=== PATIENT | female | born 1975 | race Caucasian/White ===

== ENCOUNTER 2023-11-14 15:54 | Emergency (ER) | payer OTHER, SELFPAY ==
--- NOTE | 2023-11-14 15:54 | ECG_ITS ---
APPROVED REPORT Exam: Resting ECG HR:85 bpm ECG Measurements Heart Rate [address] 142 P 63 QRSd 79 QRS 27 QT 378 T 41 QTc 420 Conclusion SINUS RHYTHM POSSIBLE LEFT ATRIAL ENLARGEMENT [-0.1mV P-WAVE IN V1/V2] Electronically signed by : SETH ADAMES, 11/15/2023 03:25:51
[2023-11-14 15:58] VITALS: BP 135/78; PULSE 92; RESP 20; TEMP 37; O2SAT 95; BMI 35.7
[2023-11-14 16:00] VITALS: BP 181/112; PULSE 84; RESP 20; O2SAT 94
[2023-11-14 16:04] VITALS: BMI 35.7
--- NOTE | 2023-11-14 16:05 | ED_ITS ---
<Statement entered by Mayda Madison MD - 11/14/23 23:02> I was consulted by the BALWINDER, and we discussed the complexity of the problems being addressed. I approved the treatment and management plan for this patient's care in the emergency department, thus performing a substantive portion of the medical decision making. Mayda Madison MD, MARYLU, FACEP Discharge Plan Disposition Patient Disposition: Home, Self-Care Condition: Good Referrals Follow up/Referrals: Marciano Sousa MD [Staff Physician] - See instructions Provider,MD Rosemary [Primary Care Provider] - See instructions Activity Restrictions/Add. Instructions Additional Instructions/Restrictions: Follow-up with PCP or return to ED for any worsening signs symptoms or condition. Clinical Impressions Clinical Impression: Chest pain Qualifiers: Chest pain type: unspecified Qualified Code(s): R07.9 - Chest pain, unspecified Discharge ED Provider: Mayda Madison [facility] General Chief Complaint: Chest Pain Stated Complaint: chest pain Time Seen by Provider: 11/14/23 16:05 History of Present Illness HPI narrative: Patient presents for evaluation of substernal chest pain that began yesterday. Patient states that the pain is located in the center of her chest below her sternum that does not radiate. Patient reports that it has never completely gone away but has waxed and waned in intensity. Patient reports that it began suddenly as pressure while at work yesterday. Patient went to a hospital in [facility] where she was evaluated but ultimately discharged with no specific findings or diagnosis. Patient denies diaphoresis fever chills hemoptysis hematochezia melena nausea vomiting diarrhea. ` Related Data Allergies Allergy/AdvReac Type Severity Reaction Status Date / Time etodolac Allergy Verified 11/14/23 16:06 Sulfa (Sulfonamide Allergy Verified 11/14/23 16:06 Antibiotics) [facility] Disclaimer: The information contained in this section may have been updated after the patient was seen, as this information can be updated by other users. Social History Smoking Status: Unknown if ever smoked alcohol intake: never current occupational status: employed Travel in the last 8 weeks: None ROS Obtained: Yes Systems reviewed as appropriate & no additional complaints except as documented Physical Exam General General appearance: alert and in no apparent distress Head Head exam: atraumatic and normal inspection Eye Eye exam: Present normal appearance and PERRL ENT ENT exam: Present normal exam, normal oropharynx and mucous membranes moist Neck Neck exam: Present normal inspection and full ROM Chest Chest inspection: Present normal inspection and symmetric chest wall rise; Absent tenderness (No deformity) Respiratory Respiratory exam: Present normal lung sounds bilaterally; Absent respiratory distress, wheezes or accessory muscle use Cardiovascular Cardiovascular exam: Present regular rate, normal rhythm, normal heart sounds, +S1 and +S2 Abdominal Exam Abdominal exam: Present soft (Obese), tenderness (Patient was exquisitely tender to palpation in the epigastrium) and normal bowel sounds; Absent guarding or rebound Extremities Exam Extremities exam: Present normal inspection and full ROM Back Exam Back exam: Present normal inspection and full ROM Neurological Exam Neurological exam: Present alert and oriented X3 Psychiatric Psychiatric exam: Present normal affect and normal mood Skin Skin exam: Present warm, dry and normal color HEART Score HEART Score HEART Score assessment performed?: Yes History (anamnesis): Slightly suspicious ECG: Normal Age: 45-65 years Risk factors: 1-2 risk factors Troponin: </= normal limit HEART Score: 2 Critical Care Critical Care Time Critical Care Time: No Medical Decision Making Medical Records Medical records reviewed: Yes I reviewed the patient's medical records. Christopher Inquiry Pt receiving controlled substance: No Vital Signs Vital Signs: 11/14/23 15:58 11/14/23 16:00 11/14/23 16:30 Temperature 98.6 F Temperature Source Oral Pulse Rate 84 78 Pulse Rate [Right] 92 H Respiratory Rate 20 20 20 Blood Pressure 181/112 H 186/116 H Blood Pressure [Right Arm] 135/78 Blood Pressure Mean 138 139 Blood Pressure Mean [Right Arm] 97 Blood Pressure Source Blood Pressure Source [Right Arm] Automatic Cuff Blood Pressure Position 02 Sat by Pulse Oximetry 95 94 L 96 Oxygen Delivery Method Room Air 11/14/23 18:00 Temperature 98.0 F Temperature Source Oral Pulse Rate 82 Pulse Rate [Right] Respiratory Rate 18 Blood Pressure 174/100 H Blood Pressure [Right Arm] Blood Pressure Mean Blood Pressure Mean [Right Arm] Blood Pressure Source Automatic Cuff Blood Pressure Source [Right Arm] Blood Pressure Position Sitting 02 Sat by Pulse Oximetry Oxygen Delivery Method Room Air Lab Data Lab results reviewed: Yes I reviewed the patient's lab results. Labs: Lab Results 11/14/23 16:01: WBC 9.2, RBC 4.47, Hgb 12.2, Hct 39.1, MCV 87.5, MCH 27.3, MCHC 31.3 L, RDW 14.5, Plt Count 519 H, MPV 7.2 L, Neut % (Auto) 66.5, Lymph % (Auto) 24.0, Starke % (Auto) 5.1, Eos % (Auto) 3.4, Baso % (Auto) 1.1, Neut # (Auto) 6.1, Lymph # (Auto) 2.2, Starke # (Auto) 0.5, Eos # (Auto) 0.3, Baso # (Auto) 0.1, Lipase 43 11/14/23 : Sodium 141, Potassium 3.6, Chloride 105, Carbon Dioxide 27, Anion Gap 12.6, BUN 17, Creatinine 1.30 H, Estimated Creat Clear 69, Estimated GFR 44 L, E st GFR ( Amer) 53 L, Glucose 98, Calcium 9.6, Total Bilirubin 0.7, AST 27, ALT 26, Alkaline Phosphatase 116, Troponin I < 0.01, Total Protein 7.1, Albumin 4.6, Globulin 2.5, Albumin/Globulin Ratio 1.8 11/14/23 16:01 11/14/23 Unknown Response Orders (Tests/Meds): ED MEDICATIONS Discontinued Medications Generic Name Dose Route Start Last Admin Trade Name Freq PRN Reason Stop Dose Admin Acetaminophen 1,000 mg 11/14/23 16:21 11/14/23 16:32 Acetaminophen 1,000mg/100ml Vial IV 11/14/23 16:22 1,000 mg ONCE ONE Administration Belladonna Alkaloids 60 ml 11/14/23 16:21 11/14/23 16:32 Belladonna Alkaloids 60 Ml Ml PO 11/14/23 16:22 60 ml ONCE ONE Administration Iopamidol 70 ml 11/14/23 18:06 11/14/23 18:07 Iopamidol-370 (76%);100ml Bottle IV 11/14/23 18:07 70 ml ONCE ONE Administration Metoprolol Tartrate 25 mg 11/14/23 17:46 11/14/23 17:50 Metoprolol Tartrate 50mg Tablet PO 11/14/23 17:47 25 mg ONCE ONE Administration Sodium Chloride 10 ml 11/14/23 16:11 Sodium Chloride 0.9% 10ml Flush Syringe IV 12/14/23 16:10 NEEDED PRN Maintain IV Site Sodium Chloride 10 ml 11/14/23 18:06 11/14/23 18:07 Sodium Chloride 0.9% 10ml Syr (Rad Only) IV 11/14/23 18:07 10 ml ONCE ONE Administration Sodium Chloride 50 ml 11/14/23 18:06 11/14/23 18:07 0.9 % Sodium Chloride 50 Ml Vial IV 11/14/23 18:07 50 ml ONCE ONE Administration ORDERS Category Date Time Status CT angio chest PE protocol Stat Cat Scan 11/14/23 16:56 Completed CXR 2 view (NOT portable) [XR chest 2V] Stat Exams 11/14/23 16:07 Completed Complete Blood Count Auto Diff Stat Lab 11/14/23 16:01 Completed Comprehensive Metabolic Panel Stat Lab 11/14/23 Completed Lipase Stat Lab 11/14/23 16:01 Completed Troponin I Stat Lab 11/14/23 Completed MDM Narrative Medical Decision Narrative: In summary patient is a 48-year-old female who presents to the emergency department for evaluation of greater than 24-hour chest pain. Patient is hemodynamically stable upon arrival, afebrile. Physical exam is remarkable for tenderness to palpation epigastrium however the remainder of her physical exam was nonfocal and unremarkable other than obesity. Differential diagnosis includes ACS versus esophagitis versus ulcer versus pancreatitis etc. Initial workup will be conducted with hematologic labs twelve-lead EKG. Initial interventions include Toradol Tylenol GI cocktail. Initial workup reviewed by me shows that her hematologic labs are unremarkable including negative troponin negative D-dimer however her plain film chest x-ray informally interpreted by me shows possibly a rim of air representing a possible pneumothorax on the right. My informal interpretation of her CTA PE protocol shows no evidence of PE and does not show a pneumothorax although the radiologist read is pending. Upon repeat evaluation has had no interval change positive or negative and her subjective symptoms that are still present, present on arrival including central chest pressure with no radiation. Patient did have elevation of her blood pressure greater than 200 systolic at the time of my reexamination. Given this we have investigated life-threatening or critical causes of her discomfort and had found none thus far, patient will be given a dose of her home metoprolol prior to discharge with instructions to follow-up with cardiology in the a.m. Patient verbalized understanding and agreement.
--- NOTE | 2023-11-14 16:07 | XR_ITS ---
PROCEDURE INFORMATION: Exam: XR Chest Exam date and time: 11/14/2023 4:07 PM Age: 48 years old Clinical indication: Sternal or substernal pain; Additional info: Chest pain TECHNIQUE: Imaging protocol: Radiologic exam of the chest. Views: 2 views. COMPARISON: No relevant prior studies available. FINDINGS: Lungs: Unremarkable. No consolidation. Pleural spaces: Very thin pleural air collection seen laterally at the right lung base. No pleural fluid. Heart/Mediastinum: Unremarkable. No cardiomegaly. Bones/joints: Unremarkable. IMPRESSION: Possible thin pneumothorax at the lateral right lung base. This does not have the typical appearance of a prominent skin fold. Consider further evaluation with chest CT.
--- NOTE | 2023-11-14 16:17 | PC.NURSE ---
Pt gone to RAD
--- NOTE | 2023-11-14 16:20 | PC.NURSE ---
Pt back from LAB
[2023-11-14 16:22] LABS: Alanine Aminotransferase 26 U/L (12-78); Albumin Level 4.6 g/dl (3.5-5.0); Albumin/Globulin Ratio 1.8 (1.1-1.8); Alkaline Phosphatase 116 U/L (38-126); Anion Gap 12.6 mEq/L (5-15); Aspartate Amino Transferase 27 U/L (14-36); Bilirubin,Total 0.7 mg/dl (0.2-1.3); Blood Urea Nitrogen 17 mg/dl (7-17); Calcium 9.6 mg/dl (8.4-10.2); Carbon Dioxide 27 mmol/L (22.0-30.0); Chloride 105 mmol/L (98-107); Creatinine Clearance Estimated 69 mL/min (50-200); Estimated Glomerular Filt Rate 44 ml/min (>60); GFR (African American) 53 ML/MIN (>60); Globulin 2.5 g/dL (1.3-3.2); Glucose 98 mg/dl (74-100); Potassium 3.6 mmoL/L (3.5-5.1); Sodium 141 mmol/L (136-145); Total Protein,Serum 7.1 g/dl (6.3-8.2)
[2023-11-14 16:30] VITALS: BP 186/116; PULSE 78; RESP 20; O2SAT 96
[2023-11-14] MEDS: ACETAMINOPHEN 1,000MG/100ML VIAL 1000 MG IV (16:32)
[2023-11-14] MEDS: BELLADONNA ALKALOIDS 60 ML ML PO (16:32)
[2023-11-14 16:34] LABS: Troponin I < 0.01 ng/ml (0.00-0.034)
[2023-11-14 16:43] LABS: Basophils # 0.1 K/mm3 (0-0.2); Basophils % 1.1 % (0.1-2.0); Eosinophils # 0.3 K/mm3 (0.0-0.4); Eosinophils % 3.4 % (0.1-12.0); Hematocrit 39.1 % (37.0-47.0); Hemoglobin 12.2 g/dL (12.2-16.2); Lymphocytes # 2.2 K/mm3 (0.7-4.5); Mean Corpuscular HGB Conc 31.3 g/dL (31.8-35.4); Mean Corpuscular Hemoglobin 27.3 pg (27.0-31.2); Mean Corpuscular Volume 87.5 fl (81-99); Mean Platelet Volume 7.2 fl (7.4-10.4); Monocytes # 0.5 K/mm3 (0.1-1.0); Monocytes % 5.1 % (1.7-9.3); Neutrophils # 6.1 K/mm3 (1.8-7.8); Neutrophils % 66.5 % (37.0-80.0); Platelet Count 519 K/mm3 (142-424); Red Blood Count 4.47 M/mm3 (4.20-5.40); Red Cell Distribution Width 14.5 % (11.5-17.5); White Blood Count 9.2 K/mm3 (4.8-10.8)
--- NOTE | 2023-11-14 16:55 | PC.NURSE ---
DR JAIN SPEAKING WITH BETHANEI
--- NOTE | 2023-11-14 16:56 | CT_ITS ---
PROCEDURE INFORMATION: Exam: CTA Chest With Contrast Exam date and time: 11/14/2023 5:20 PM Age: 48 years old Clinical indication: Sternal or substernal pain; Additional info: Cp, f/u abnormal cxr possible ptx TECHNIQUE: Imaging protocol: Computed tomographic angiography of the chest with contrast. Exam focused on the arteries. 3D rendering (Not supervised by radiologist): MIP and/or 3D reconstructed images were created by the technologist. Radiation optimization: All CT scans at this facility use at least one of these dose optimization techniques: automated exposure control; mA and/or kV adjustment per patient size (includes targeted exams where dose is matched to clinical indication); or iterative reconstruction. Contrast material: ISO 370; Contrast volume: 70 ml; Contrast route: INTRAVENOUS (IV); COMPARISON: CR XR CHEST 2V 11/14/2023 4:07 PM FINDINGS: Pulmonary arteries: Normal. No pulmonary emboli. Aorta: Unremarkable. No aortic aneurysm. No aortic dissection. Lungs: 5 mm right lower lobe calcified granuloma. Minor bibasilar atelectasis. No consolidation. No masses. Pleural spaces: Unremarkable. No pneumothorax. No pleural effusion. Heart: Unremarkable. No cardiomegaly. No pericardial effusion. Lymph nodes: Unremarkable. No enlarged lymph nodes. Gallbladder and bile ducts: Cholecystectomy. Bones/joints: Unremarkable. No acute fracture. Soft tissues: Unremarkable. IMPRESSION: 1. Minor bibasilar atelectasis. 2. No pneumothorax is visualized.
[2023-11-14 17:02] LABS: Lipase 43 U/L (23-300)
[2023-11-14] MEDS: METOPROLOL TARTRATE 50MG TABLET 25 MG PO (17:50)
[2023-11-14 18:00] VITALS: BP 174/100; PULSE 82; RESP 18; TEMP 36.7; O2SAT 98
[2023-11-14] MEDS: IOPAMIDOL-370 (76%);100ML BOTTLE 70 ML IV (18:07)
[2023-11-14] MEDS: 0.9 % SODIUM CHLORIDE 50 ML VIAL IV (18:07)
[2023-11-14] MEDS: SODIUM CHLORIDE 0.9% 10ML SYR (RAD ONLY) 10 ML IV (18:07)
== END 2023-11-14 18:00 | disposition home or self-care (01) ==
PROVIDERS: Physician Assistant; Emergency Provider Student in an Organized Health Care Education/Training Program
DX: R07.9 Chest pain, unspecified (principal)
CPT/HCPCS: 71046; 71275; 80053; 83690; 84484; 85025; 93005; 96374; 99285; J0131; Q9967

== ENCOUNTER 2023-11-15 11:57 | Outpatient (CLI) | payer OTHER, SELFPAY | END 2023-11-15 23:59 | PROVIDERS: PCP Nurse Practitioner Family; Visit Provider Nurse Practitioner | DX: R00.2 Palpitations (principal); R07.9 Chest pain, unspecified; I10 Essential (primary) hypertension; E78.5 Hyperlipidemia, unspecified; E11.9 Type 2 diabetes mellitus without complications; Z79.84 Long term (current) use of oral hypoglycemic drugs | CPT/HCPCS: 93270 ==

== ENCOUNTER 2023-12-02 12:27 | Outpatient (CLI) | payer OTHER, SELFPAY ==
--- NOTE | 2023-12-02 | CA_ITS ---
APPROVED REPORT Exam: Exercise Treadmill Technologist: Cheyenne Alan, Ht: 5 ft 0 in Wt: 184 lbs BSA: 1.80 m2 HR: 95 bpm BP: 123/82 mmHg Rhythm: NSR Medical History Medical History: HTN, Hyperlipidemia, Diabetes Medications: Aspirin,,,,, Pravastatin,,,,, Metformin,,,,, Gabapentin,,,,, Buspirone,,,,, SyMBICORT,,,,, Estradiol,,,,, Lansoprazole,,,,, Montelukast,,,,, Vit D3,,,,, LoraTADINE,,,,, Tizanidine,,,,, Allergies: etodolac, sulfa Cardiac Risk Factors: HTN, Hyperlipidemia, Diabetes Stress Test Details Test: Manual Treadmill HR Resting HR: 99 bpm Max Heart Rate (APMHR): 172 bpm Max HR Achieved: 152 bpm Target HR (85% APMHR): 146 bpm % of APMHR: 88 Recovery HR: 115 bpm HR response to stress: Normal HR response to stress BP Resting BP: 123.0/82 mmHg Max BP: 176/78 mmHg Recovery BP: 139.0/66.0 mmHg BP response to stress: Normal blood pressure response to stress. ECG Resting ECG: Normal sinus rhythm Stress EC.[address] depression Arrhythmia: None Recovery ECG: Return to baseline within 3 minutes of recovery Clinical Exercise duration: 08:27 min Highest Stage Achieved: Exercise capacity: 10.1 METs Overall Exercise Capacity for Age: Average Stress ECG Conclusion The patient was able to exercise for a total of 8 minutes, 27 seconds. She achieved a total of 10.1 METS. She has average exercise capacity compared to age and sex matched peers. She has normal HR and BP response to exercise. At peak stress, the patient developed dyspnea and mild chest pain. Ectopy: None ST changes: 0.[address] depression Conclusion: Average exercise capacity. No ischemic ECG changes at peak stress. Myoview images are reported separately. Test Summary REST . . . . . . . Standing REST . . . . . . . Sitting REST 13:30 0.0 0.0 99 . 123/ 82 . . Stage 1 01:00 10.0 1.7 109 . . . . Stage 1 02:00 10.0 1.7 117 . . . . Stage 1 03:00 10.0 1.7 121 . 130/ 78 . . Stage 2 01:00 12.0 2.5 125 . . . . Stage 2 02:00 12.0 2.5 130 . . . . Stage 2 03:00 12.0 2.5 134 . 145/ 82 . . Stage 3 01:00 14.0 3.4 139 . . . . Stage 3 02:00 14.0 3.4 146 . . . . Stage 3 . . . . . . . Protocol changed to Manual Treadmill Stage 3 02:27 14.0 3.2 80 . . . Stop exercise at 08:27 RECOVERY 01:00 0.0 0.0 145 . . . . RECOVERY 02:00 0.0 0.0 132 . 127/ 73 . . RECOVERY 03:00 0.0 0.0 126 . 127/ 73 . . RECOVERY 04:00 0.0 0.0 118 . 176/ 78 . . RECOVERY 05:00 0.0 0.0 115 . 158/ 65 . . RECOVERY 05:59 0.0 0.0 115 . 139/ 66 . . Electronically signed by : Anu Ritchie MD 12/03/2023 11:38:15
--- NOTE | 2023-12-02 12:28 | NM_ITS ---
APPROVED REPORT Exam: Nuclear Stress Test Indication: HTN, HYPERLIPIDEMIA, FM HX, C.P., SOB, PALPITATIONS, FATIGUE Patient Location: Outpatient Stress Tech: Cheyenne Alan [place] Tech:Yolanda HowellBIANCA RT(R)(N) Ht: 5 ft 1 in Wt: 183 lbs Bra Size: 38C HR: 99 bpm BP: 123/82 mmHg BSA: 1.82 m2 BMI: 34.5 History: HTN, HYPERLIPIDEMIA, FM HX, C.P., SOB, PALPITATIONS, FATIGUE Procedure: Patient exercised on Evan protocol 8:27 minutes and sec, resting heart rate 99 bpm, resting blood pressure 123/82 mmHg, with exercise maximum heart rate achived was 152 bpm which is 88 % of the maximum predicted heart rate and blood pressure was 176/78 mmHg. Test was stopped due to FATIGUE. Patient has exercise capacity, achieved 10.1 METs of workload on treadmill, the blood pressure response to exercise was . Cardiac Stress and Resting SPECT Images: Cardiac Stress and Resting SPECT images were obtained using technetium 99m Myoview 32.0 mCi stress and 10.51 mCi at rest. Resting and stress imaging in supine and prone positions demonstrate no evidence of fixed or reversible perfusion defects. There is low normal global LV systolic function. LVEF is calculated at 50%. Conclusion: No evidence of fixed or reversible perfusion defects. There is low normal global LV systolic function. LVEF is calculated at 50%. Electronically signed by : Anu Ritchie MD 12/04/2023 13:09:20
[2023-12-02] MEDS: ISOTOPE MYOVIEW (PER STUDY) 1 DOSE IV (14:43)
[2023-12-02] MEDS: SODIUM CHLORIDE 0.9% 10ML SYR (RAD ONLY) 10 ML IV ×2 (14:43)
== END 2023-12-02 23:59 ==
LOC: RAD 12:28
PROVIDERS: PCP Nurse Practitioner Family; Visit Provider Nurse Practitioner
DX: R07.9 Chest pain, unspecified (principal); R00.2 Palpitations; I10 Essential (primary) hypertension; E78.5 Hyperlipidemia, unspecified; E11.9 Type 2 diabetes mellitus without complications; Z79.84 Long term (current) use of oral hypoglycemic drugs
CPT/HCPCS: 78452; 93017; 93018; A9502

== ENCOUNTER 2023-12-10 07:55 | Outpatient (CLI) | payer OTHER, SELFPAY ==
--- NOTE | 2023-12-10 07:58 | CA_ITS ---
FINAL REPORT TECHNIQUE: Color Doppler, duplex Doppler and olivia scale sonography of the bilateral neck arterial vasculature was performed. Velocities were measured in the carotid arteries. Stenosis evaluation based on the validated velocity criteria. CLINICAL HISTORY: DIZZINESS,HTN,HLD COMPARISON: None FINDINGS: The peak systolic velocity of the right common carotid artery is 111 cm/s. The peak systolic velocity of the right internal carotid artery is 111 cm/s and end diastolic velocity 48 cm/s. The ICA/CCA ratio is 1.08. A minimal amount of plaque is present. The right external carotid artery is patent. The right vertebral artery is patent with antegrade flow. The peak systolic velocity of the left common carotid artery is 104 cm/s. The peak systolic velocity of the left internal carotid artery is 121 cm/s and end diastolic velocity 49 cm/s. The ICA/CCA ratio is 1.33. A minimal amount of plaque is present. The left external carotid artery is patent.The left vertebral artery is patent with antegrade flow. IMPRESSION: Less than 50% bilateral carotid stenoses. Bilateral patent vertebral arteries with antegrade flow. If indicated, CTA or MRA could further evaluate. Reviewed, Interpreted and Dictated by Glen Ni III, MD Transcribed by Katey Osei Authenticated and [facility]
--- NOTE | 2023-12-10 07:58 | CA_ITS ---
FINAL REPORT TECHNIQUE: Grayscale, color Doppler and duplex Doppler ultrasound of the kidneys, aorta and renal arteries was performed. Multiple velocities were measured. CLINICAL HISTORY: HTN,HLD,HX KIDNEY STONES COMPARISON: None FINDINGS: Aorta velocity: 76 cm/sec Right kidney: 9.9 cm. No evidence of hydronephrosis or mass. Right intrarenal RI: 0.59-0.64 Right renal artery velocity: 148 cm/sec. Right RAR (Renal artery-Aortic Ratio): 1.95 Left Kidney: 9.7 cm. No evidence of hydronephrosis or mass. Left intrarenal RI: 0.66-0.68 Left renal artery velocity: 153 cm/sec. Left RAR (Renal Artery-Aortic Ratio): 2.02 IMPRESSION: No evidence of significant renal artery stenosis. CT angiogram or postcontrast MR angiogram would be more sensitive for evaluation of possible renal artery stenosis. Reviewed, Interpreted and Dictated by Glen Ni III, MD Transcribed by Katey Osei Authenticated and [facility]
--- NOTE | 2023-12-10 07:58 | CA_ITS ---
APPROVED REPORT EXAM: Comprehensive 2D, Doppler, and color-flow Echocardiogram Otorhinolaryngologist: Claudia Reyez CRT Ht: 5 ft 0 in Wt: 184lbs BSA: 1.80 BP: 173/91 mmHg Indications: Chest Pain, Shortness of Breath, Diabetes, Palpitations, Hyperlipidemia, Hypertension/HDD 2D Dimensions LA Volume 20.40 mL LA Volume Index 11.00 mL/m2 (M/F) 16-34 M-Mode Dimensions RVDd 2.07 cm (0.9-2.6) LA Diam 2.59 cm (1.9-4.0) LVDd 3.92 cm (3.5-5.7) LVDs 2.50 cm (3.5-5.7) IVSd 1.07 cm (0.6-1.1) PWd 0.95 cm (0.6-1.1) EF (Teich) 66.60% FS 36.20% EDV (Teich) 66.70 mL TAPSE 1.43 (<1.7) ESV (Teich) 22.30 mL LV Diastology E Decel Time 207 (160-240 msec) E/A Ratio 0.69 MED A' 12.80 cm/s LAT A' 10.00 cm/s Aortic Valve AO Peak GR. 5.70 mmHg Mitral Valve MV E Max Emile. 72.0 (40-130 cm/s) MV A Velocity 105.0 (40-130 cm/s) E/A Ratio 0.69 MV PHT 61.0 ms Pulmonary Valve PV Peak Velocity 159.0 (50-150 cm/s) Tricuspid Valve TR P. Velocity 165.00 cm/s RAP Estimate 10.00 mmHg RVSP 20.80 mmHg Left Ventricle The left ventricle is normal size. The left ventricular systolic function is normal. The left ventricular ejection fraction is within the normal range. There is increased LV wall thickness. There is normal LV segmental wall motion. Transmitral Doppler flow pattern suggests impaired LV relaxation. LVEF is 50-55%. Right Ventricle The right ventricle is normal size. The right ventricular systolic function is normal. Atria The left atrium size is normal. The right atrium size is normal. There is no Doppler evidence of interatrial shunt. Aortic Valve The aortic valve opens well. There is no aortic valvular stenosis. No aortic regurgitation is present. Mitral Valve The mitral valve is normal in structure. No evidence of mitral valve stenosis. Trace mitral valve regurgitation noted. Tricuspid Valve The tricuspid valve leaflets are thin and pliable. Trace tricuspid regurgitation. There is insufficient TR jet to estimate RVSP. Pulmonic Valve The pulmonary valve is normal in structure. Trace pulmonic regurgitation. Great Vessels The aortic root is normal in size. The ascending aorta is normal in size. IVC is normal in size and collapses >50% with inspiration. Pericardium There is no pericardial effusion. Other Information Study Quality: Fair Conclusion Normal biventricular systolic function. No significant valvular stenosis or regurgitation. Electronically signed by : Anu Ritchie MD 12/13/2023 00:24:57
--- NOTE | 2023-12-10 08:52 | US_ITS ---
FINAL REPORT TECHNIQUE: Ultrasound images of the kidneys and bladder were obtained. CLINICAL HISTORY: R07.9 - Chest pain, unspecified FINDINGS: The right kidney measures 8.9 cm in length. It is normal in echogenicity. There is no hydronephrosis. The left kidney measures 10.1 cm in length. It is normal in echogenicity. There is no hydronephrosis. There are questionable small bilateral renal stones. The spleen is unremarkable. IMPRESSION: Questionable bilateral renal stones. If indicated, stone protocol CT could further evaluate. Reviewed, Interpreted and Dictated by Glen Ni III, MD Transcribed by Rica Casas Authenticated and [facility]
== END 2023-12-10 23:59 ==
LOC: RT 07:56
PROVIDERS: PCP Nurse Practitioner Family; Visit Provider Nurse Practitioner
DX: R07.9 Chest pain, unspecified (principal); R00.2 Palpitations; I10 Essential (primary) hypertension; E78.5 Hyperlipidemia, unspecified; E11.9 Type 2 diabetes mellitus without complications; Z79.84 Long term (current) use of oral hypoglycemic drugs
CPT/HCPCS: 76770; 93306; 93880; 93976

== ENCOUNTER 2023-12-19 09:51 | Outpatient (CLI) | payer OTHER, SELFPAY ==
[2023-12-19 10:21] LABS: Basophils # 0.1 K/mm3 (0-0.2); Basophils % 0.9 % (0.1-2.0); Eosinophils # 0.3 K/mm3 (0.0-0.4); Eosinophils % 4.2 % (0.1-12.0); Hematocrit 34.7 % (37.0-47.0); Hemoglobin 11.1 g/dL (12.2-16.2); Lymphocytes # 1.8 K/mm3 (0.7-4.5); Lymphocytes % 28.8 % (10-50); Mean Corpuscular HGB Conc 31.9 g/dL (31.8-35.4); Mean Corpuscular Hemoglobin 27.4 pg (27.0-31.2); Mean Platelet Volume 8.2 fl (7.4-10.4); Monocytes # 0.3 K/mm3 (0.1-1.0); Neutrophils # 3.9 K/mm3 (1.8-7.8); Neutrophils % 61.1 % (37.0-80.0); Platelet Count 463 K/mm3 (142-424); Red Blood Count 4.03 M/mm3 (4.20-5.40); Red Cell Distribution Width 14.5 % (11.5-17.5); White Blood Count 6.3 K/mm3 (4.8-10.8)
[2023-12-19 10:40] LABS: Chloride 106 mmol/L (98-107); Potassium 4.2 mmoL/L (3.5-5.1); Sodium 139 mmol/L (136-145)
[2023-12-19 10:43] LABS: Alanine Aminotransferase 52 U/L (12-78); Albumin Level 3.8 g/dl (3.5-5.0); Alkaline Phosphatase 107 U/L (38-126); Anion Gap 9.2 mEq/L (5-15); Aspartate Amino Transferase 38 U/L (14-36); Bilirubin,Direct 0.3 mg/dl (0.0-0.4); Bilirubin,Indirect 0.1 mg/dL (0.0-0.9); Bilirubin,Total 0.4 mg/dl (0.2-1.3); Bilirubin,Unconjugated 0.1 mg/dL (0.0-1.1); Blood Urea Nitrogen 15 mg/dl (7-17); Calcium 9.1 mg/dl (8.4-10.2); Carbon Dioxide 28 mmol/L (22.0-30.0); Cholesterol 230 mg/dl (140-200); Estimated Glomerular Filt Rate 77 ml/min (>60); GFR (African American) 93 ML/MIN (>60); Glucose 112 mg/dl (74-100); Total Protein,Serum 5.9 g/dl (6.3-8.2); Triglycerides 231 mg/dl (30-150); VLDL Cholesterol 46 mg/dL (0-40)
[2023-12-19 10:44] LABS: Chol/HDL Ratio 3.7 (1-3.5); HDL Cholesterol 62 mg/dl (40-60)
[2023-12-19 10:55] LABS: Direct LDL Cholesterol 125.81 mg/dL (100-129)
[2023-12-19 11:24] LABS: Free T4 (Free Thyroxine) 1.16 ng/dl (0.78-2.19)
== END 2023-12-19 23:59 | disposition home or self-care (01) ==
LOC: LAB 09:52
PROVIDERS: PCP Nurse Practitioner Family; Visit Provider Nurse Practitioner
DX: E78.5 Hyperlipidemia, unspecified (principal); I10 Essential (primary) hypertension; E11.9 Type 2 diabetes mellitus without complications; Z79.84 Long term (current) use of oral hypoglycemic drugs
CPT/HCPCS: 36415; 80048; 80061; 80076; 84439; 84443; 85025

== ENCOUNTER 2024-02-12 15:47 | Outpatient (CLI) | payer OTHER, SELFPAY ==
--- NOTE | 2024-02-12 15:59 | XR_ITS ---
FINAL REPORT CLINICAL HISTORY: cough, chest congestion COMPARISON: 11/14/2023 FINDINGS: Two views of the chest were obtained. The heart size and pulmonary vascularity are within normal limits. The mediastinum is normal. There are mild bibasilar opacities which are favored to represent atelectasis over pneumonia. There is no pneumothorax. The bony thorax is intact. IMPRESSION: Mild bibasilar opacities favor atelectasis over pneumonia. Reviewed, Interpreted and Dictated by Glen Ni III, MD Transcribed by Katey Osei Authenticated and [facility]
== END 2024-02-12 23:59 | disposition home or self-care (01) ==
LOC: RAD 15:48
PROVIDERS: PCP Nurse Practitioner Family; Visit Provider Nurse Practitioner Family
DX: R09.89 Other specified symptoms and signs involving the circulatory and respiratory systems (principal); R05.9 Cough, unspecified
CPT/HCPCS: 71046